=== PATIENT | male | born 1990 | race African-American/Black ===

== ENCOUNTER 2016-06-30 11:02 | Emergency (ER) | payer OTHER ==
[~2016-06-30] VITALS: Ht 167.6 cm; Wt 50.3 kg
[~2016-06-30 11:02] MED LIST: FLEXERIL10 MG PO; MOTRIN800 MG PO
[2016-06-30 11:06] VITALS: BP 124/66
--- NOTE | 2016-06-30 11:06 | ED SYNCOPE COMPLAINT ---
History of Present Illness General Chief Complaint: Syncope and Near-Syncope Stated Complaint: SYNCOPLE AT WORK Source: patient Exam Limitations: no limitations Vital Signs & Intake/Output Vital Signs & Intake/Output Vital Signs Date Time Temp Pulse Resp B/P Pulse O2 O2 Flow FiO2 Ox Delivery Rate 06/30 1106 98.6 76 18 124/66 98 Room Air Allergies Coded Allergies: No Known Allergies (08/03/15) Reconcile Medications CYCLOBENZAPRINE HCL (Flexeril) 10 MG TAB 1 TAB PO TID PRN SPASM Avoid operating motor vehicle or heavy machinery Ibuprofen (Motrin) 800 MG TAB 1 TAB PO TID PRN PAIN Triage Nurses Notes Reviewed? yes Timing: remote history Precipitating Factors: lightheadedness Context: walking HPI: Patient is a 25-year-old male with no known past medical history presenting to the emergency Department chief complaint of syncopal episode at work prior to arrival. Patient reports that his walking and became lightheaded. He then passed out landing on his arms. Denies head strike. Patient reports that he has had decreased by mouth intake over the past several days as he's had the stomach bug. Denies any chest pain palpitations. No headaches. No visual changes. Denies any urinary symptoms or abdominal pain. (YESSI NIELSEN) Past History Travel History Traveled to [place] past 21 day No Medical History Any Pertinent Medical History? see below for history Surgical History Surgical History: N Psychosocial History What is your primary language Vincentian Family History Hx Contributory? No (YESSI NIELSEN) Review of Systems Review of Systems Constitutional: Reports: no symptoms. Comments Review of systems: See HPI, All other systems negative. Constitutional, no chills fever or weight loss HEENT: No visual changes no sore throat no congestion Cardiovascular: No chest pain ,palpitation , orthopnea or ankle swelling Skin, no jaundice no rashes Respiratory: No dyspnea cough sputum or hemoptysis GI: No nausea no vomiting : No dysuria No hematuria Muscle skeletal: no back pain, no neck pain, Neurologic: No numbness no confusion Psych: No stress anxiety Immunology: No splenectomy or history of AIDS (YESSI NIELSEN) Physical Exam Physical Exam General Appearance: well developed/nourished, no apparent distress, alert, awake , comfortable Cranial Nerves: cn 2-12 intact Comments: Well-developed well-nourished person in no acute distress HEENT: Normal EENT exam, extraocular motion intact, no nystagmus. Pupils equally round and reactive to light and accommodation. Nose is atraumatic. External auditory canal and Tympanic membranes clear. Pharynx normal. No swelling or edema. Neck: Supple, no lymphadenopathy, normal range of motion without pain or tenderness, no C-spine tenderness. Back: Nontender, no CVA tenderness. Full range of motion Cardiovascular: Regular rate and rhythms no murmurs rubs or gallops, normal JVP Respiratory: Chest nontender. No respiratory distress.breath sounds clear to auscultation bilaterally Extremity: No edema, radial pulses are 2+ bilaterally. Muscular strength is 5 out of 5 in all extremities. 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 Neuro: Alert oriented x3, motor sensory normal, cranial nerves II through XII grossly intact. Cerebellar testing is unremarkable. Skin: No appreciable rash on exposed skin, skin is warm and dry. Psych: Mood and affect is normal, memory and judgment is normal. Core Measures ACS in differential dx? No CVA/TIA Diagnosis: No Severe Sepsis Present: No Septic Shock Present: No (YESSI NIELSEN) Progress Differential Diagnosis: drug induced syncope, hyperventilation, orthostatic syncope, pulmonary embolus, seizure, sick sinus syndrome, ventricular tach/fib Plan of Care: Patient left AGAINST MEDICAL ADVICE. Prior to discharge vitals are stable. Patient alert and oriented and neurologically intact. (YESSI NIELSEN) Departure Departure Time of Disposition: 1105 Disposition: LEFT AGAINST MEDICAL ADVICE Condition: Stable Clinical Impression Primary Impression: Syncope Qualifiers: Syncope type: unspecified Qualified Code: R55 - Syncope and collapse Referrals: JASON DAY,LORRIE García (PCP/Family) [facility] Additional Instructions: Follow-up with [facility] he can call to make an appointment. Increase fluids. Return for worsening symptoms or concerns. Departure Forms: Customer Survey General Discharge Information (YESSI NIELSEN) PA/[employer]ADLE CLEANER Co-Sign Statement Statement: ED Attending supervision documentation- [] I saw and evaluated the patient. I have also reviewed all the pertinent lab results and diagnostic results. I agree with the findings and the plan of care as documented in the PA's/LADLE CLEANER's documentation. x I have reviewed the ED Record and agree with the PA's/LADLE CLEANER's documentation. [] Additions or exceptions (if any) to the PAs/LADLE CLEANER's note and plan are summarized below: [] (CIARA DAY,REBECCA)
== END 2016-06-30 11:11 | disposition left against medical advice (07) ==
LOC: ERH 11:02
DX: R55 Syncope and collapse (principal)
CPT/HCPCS: 99281